=== PATIENT | male | born 1940 | race Caucasian/White ===

== ENCOUNTER → 2016-10-16 | Outpatient (CLI) | payer MEDICARE, OTHER ==
[~2016-10-16] MED LIST: AMLO-61 PO; FINA5TAB2 PO; LIAL1.2T PO; METO25TA74 PO; OMEP40CA2 PO; URSO1TAB6 PO; WELC625T PO; XARE20TA PO; ZETI10TA2 PO
== END ==
LOC: M SMT 10:22
PROVIDERS: ATTEND Nurse Practitioner Women's Health
DX: N40.0 Benign prostatic hyperplasia without lower urinary tract symptoms (principal); Z12.5 Encounter for screening for malignant neoplasm of prostate
CPT/HCPCS: 36415; 81001; 87086; G0103; G0463

== ENCOUNTER → 2017-01-16 | Outpatient (CLI) | payer MEDICARE, OTHER ==
[~2017-01-16] MED LIST changes: -AMLO-61 PO; +AMLO1TAB21 PO; +COLE625TAB PO; +METO1TAB32 PO; -METO25TA74 PO; -WELC625T PO; -ZETI10TA2 PO; +ZETI10TA30 PO
--- NOTE | 2017-01-16 16:52 | REP ---
Transrectal prostate ultrasound: 01/16/2017. Clinical history. Elevated PSA. Findings: Sonographic evaluation of the prostate by transrectal ultrasound and used also as guidance for transrectal ultrasound-guided biopsy of the prostate. The gland measured 5.2 x 5.12 x 5.63 cm, giving calculated prostate volume of 78.2 mL. Seminal vesicles are grossly unremarkable. There is a right sided nodule 1.3 x 0.9 cm and another 1 x 0.7 cm with an enlarged overall heterogeneous gland with calcifications. Technologist recorded a total of 12 passes for transrectal ultrasound-guided prostate biopsy by Dr. Alicea. Please see his report for detail. Signed by Sarthak Jaramillo MD 01/16/2017 06:38 P
== END | disposition home or self-care (01) ==
LOC: M SMT PRO 12:54
PROVIDERS: ATTEND Urology
DX: R97.20 Elevated prostate specific antigen [PSA] (principal); N39.41 Urge incontinence
CPT/HCPCS: 55700; 76872; 76942; 88344; G0416

== ENCOUNTER 2018-02-11 18:34 | Emergency (ER) | payer MEDICARE, OTHER ==
[2018-02-11] MEDS: NS 1,000 ML IV (19:32)
[2018-02-11] MEDS: ACETAMINOPHEN TAB 650MG DOSE (2X325MG) PO (19:33)
[2018-02-11 19:34] LABS: HEMATOCRIT 39.3 % (42.0-52.0); HEMOGLOBIN 13.1 g/dl (13.5-17.5); IMMATURE GRANULOCYTE % 0.3 % (0-3.0); LYMPH # 0.7 10^3/uL (1.5-4.5); LYMPH % 9.5 % (24.0-44.0); MEAN CORPUSCULAR HEMOGLOBIN 29.7 pg (27.0-33.0); MEAN CORPUSCULAR HGB CONC 33.3 g/dl (32.0-36.5); MEAN CORPUSCULAR VOLUME 89.1 fl (80.0-96.0); MONO % 13.8 % (0.0-5.0); NEUTROPHILS # 5.5 10^3/uL (1.8-7.7); NEUTROPHILS % 76.4 % (36.0-66.0); PLATELET COUNT, AUTOMATED 113 10^3/uL (150-450); RED BLOOD COUNT 4.41 10^6/uL (4.30-6.10); RED CELL DISTRIBUTION WIDTH 12.2 % (11.5-14.5); WHITE BLOOD COUNT 7.2 10^3/uL (4.0-10.0)
[2018-02-11 19:54] LABS: LACTIC ACID SEPSIS PROTOCOL 0.8 MMOL/L (0.4-2.0)
[2018-02-11 19:54] LABS: ALBUMIN/GLOBULIN RATIO 0.97 (1.00-1.93); ALKALINE PHOSPHATASE 100 U/L (45-117); ALT/SGPT 41 U/L (12-78); ANION GAP 8 MEQ/L (8-16); AST/SGOT 27 U/L (7-37); BILIRUBIN,DIRECT 0.4 MG/DL (0.0-0.2); BILIRUBIN,TOTAL 1.1 MG/DL (0.2-1.0); BLOOD UREA NITROGEN 25 MG/DL (7-18); CALCIUM LEVEL 8.3 MG/DL (8.8-10.2); CARBON DIOXIDE LEVEL 26 MEQ/L (21-32); CHLORIDE LEVEL 105 MEQ/L (98-107); CPK CREATINE PHOSPHOKINASE 182 U/L (39-308); CREATININE FOR GFR 0.77 MG/DL (0.70-1.30); GLOMERULAR FILTRATION RATE > 60.0 (>42); GLUCOSE, FASTING 114 MG/DL (70-100); POTASSIUM SERUM 4.1 MEQ/L (3.5-5.1); SODIUM LEVEL 139 MEQ/L (136-145); TOTAL PROTEIN 6.1 GM/DL (6.4-8.2); TROPONIN I < 0.02 NG/ML (< 0.10)
[2018-02-11 20:00] LABS: CK-MB VALUE MASS 2.8 NG/ML (<3.6); MB/CK RELATIVE INDEX 1.53 (< OR =4); THYROID STIMULATING HORMONE 0.804 uIU/ML (0.358-3.740)
[2018-02-11 21:40] LABS: KETONE, URINE AUTO RFX TRACE mg/dL (NEGATIVE); LEUKOCYTE ESTERASE UR AUTO RFX 1+ (NEGATIVE); MUCUS, URINE RFX SMALL (NEGATIVE); NITRITE, URINE AUTO RFX NEGATIVE (NEGATIVE); RBC, URINE AUTO RFX 2 /HPF (0-3); SPECIFIC GRAVITY UR AUTO RFX 1.018 (1.002-1.035); SQUAM EPITHELIAL CELL UR AURFX 1 /HPF (0-6); WBC, URINE AUTO RFX 2 /HPF (0-3)
== END 2018-02-12 00:35 | disposition short-term general hospital (02) ==
LOC: M ED 02-12 00:35
DX: G91.2 (Idiopathic) normal pressure hydrocephalus (principal); I10 Essential (primary) hypertension; E78.5 Hyperlipidemia, unspecified; N40.0 Benign prostatic hyperplasia without lower urinary tract symptoms; Z86.711 Personal history of pulmonary embolism; Z79.01 Long term (current) use of anticoagulants
CPT/HCPCS: 71045

== ENCOUNTER → 2018-04-17 | Outpatient (CLI) | payer MEDICARE, OTHER ==
[2018-04-17 15:51] LABS: INR 1.18; PROTHROMBIN TIME 15.1 SECONDS (12.1-14.4)
== END ==
LOC: M LAB 15:09
DX: M16.11 Unilateral primary osteoarthritis, right hip (principal)
CPT/HCPCS: 85610

== ENCOUNTER → 2020-01-01 | Outpatient (CLI) | payer MEDICARE, OTHER ==
[~2020-01-01] MED LIST changes: +DITR1TAB2 PO; +FERR325T3 PO; +MELO15TA28 PO; -OMEP40CA2 PO; +OMEP40CA97 PO; +TERA5CAP3 PO; -URSO1TAB6 PO; +URSO1TAB8 PO; +VITA500T17 PO; +VITMTA PO; +ZETI10TA16 PO; -ZETI10TA30 PO
== END ==
LOC: M LABSMTC 12:02
PROVIDERS: ATTEND Family Medicine
DX: Z11.59 Encounter for screening for other viral diseases (principal); Z20.828 Contact with and (suspected) exposure to other viral communicable diseases
CPT/HCPCS: C9803; U0003

== ENCOUNTER 2020-10-26 12:08 | Emergency (ER) | payer MEDICARE, OTHER ==
[2020-10-26] MEDS ORDERED: LABE100T4 PO (12:48)
[2020-10-26] MEDS ORDERED: VASC1CAP2 PO (12:48)
[2020-10-26 14:51] LABS: HEMATOCRIT 40.2 % (42.0-52.0); HEMOGLOBIN 13.1 g/dl (13.5-17.5); LYMPH # 0.8 10^3/uL (1.5-5.0); LYMPH % 16.4 % (24.0-44.0); MEAN CORPUSCULAR HGB CONC 32.6 g/dl (32.0-36.5); MONO # 1.1 10^3/uL (0.0-0.8); MONO % 21.3 % (2.0-8.0); NEUTROPHILS # 3.1 10^3/uL (1.5-8.5); NEUTROPHILS % 61.7 % (36.0-66.0); PLATELET COUNT, AUTOMATED 153 10^3/uL (150-450); RED BLOOD COUNT 4.37 10^6/uL (4.30-6.10); WHITE BLOOD COUNT 5.1 10^3/uL (4.0-10.0)
[2020-10-26 15:01] LABS: INR 1.2; PROTHROMBIN TIME 15.5 SECONDS (12.5-14.3)
[2020-10-26 15:02] LABS: PARTIAL THROMBOPLASTIN TIME 40.5 SECONDS (24.2-38.5)
[2020-10-26 15:16] LABS: ALBUMIN 2.8 GM/DL (3.2-5.2); ALT/SGPT 67 U/L (12-78); BILIRUBIN,DIRECT 4.5 MG/DL (0.0-0.2); BILIRUBIN,TOTAL 5.6 MG/DL (0.2-1.0); BLOOD UREA NITROGEN 25 MG/DL (7-18); CALCIUM LEVEL 9.7 MG/DL (8.8-10.2); CARBON DIOXIDE LEVEL 28 MEQ/L (21-32); CHLORIDE LEVEL 102 MEQ/L (98-107); CK-MB VALUE MASS 1.9 NG/ML (<3.6); CPK CREATINE PHOSPHOKINASE 51 U/L (39-308); CREATININE FOR GFR 0.46 MG/DL (0.70-1.30); GLOMERULAR FILTRATION RATE > 60.0 (>35); GLUCOSE, FASTING 96 MG/DL (70-100); LIPASE 39 U/L (73-393); MB/CK RELATIVE INDEX 3.73 (< OR =4); POTASSIUM SERUM 3.5 MEQ/L (3.5-5.1); SODIUM LEVEL 137 MEQ/L (136-145); TROPONIN I < 0.02 NG/ML (< 0.10)
[2020-10-26] MEDS ORDERED: ISOVUE-370 76% 100ML VIAL As Ordered ONE (15:41)
--- NOTE | 2020-10-26 16:17 | REP ---
INDICATION: abdominal swelling/discomfort. COMPARISON: Multiple the latest 08/19/2016 TECHNIQUE: Standard helical technique after the intravenous administration of 100 cc Isovue 370. No oral bowel preparatory contrast was administered prior to the exam FINDINGS: The lung bases are clear. There is a small hiatal hernia status quo. Once again, there is intrahepatic ductal dilatation which may have increased somewhat compared to the prior exam. No enhancing hepatic lesions have developed. Once again, note is made of partial hepatectomy. The spleen is again seen to be globular in appearance but there is no praveen splenomegaly. There is some evidence to suggest splenic varices. This is mild. The pancreas, adrenal glands, and kidneys are essentially unchanged. The abdominal aorta and para-aortic regions are unchanged. Note is again made of an inferior vena cava filter. There is no significant change in appearance of the bowel loops or the mesenteries. Although there is a gas-filled colon there is no evidence of praveen intestinal obstruction. There is no evidence of free fluid or free air. No mass or adenopathy has developed since the last exam. Once again, there is mild prostatomegaly with corpora amylacea. Since the last examination the patient has undergone a total right hip prosthesis. There is no other significant change in appearance of the imaged osseous structures. IMPRESSION: There has been no significant change compared to the prior exam with the exception of probably increased intrahepatic ductal dilatation. The etiology of this is uncertain. There are other findings and chronic changes as described above. <Electronically signed by Randy Arboleda > 10/26/20 [id number]
--- NOTE | 2020-10-26 17:14 | REP ---
INDICATION: further evaluate liver/gallbladder. COMPARISON: No prior right upper quadrant ultrasound examinations for comparison FINDINGS: There is intrahepatic ductal dilatation known from the CT scan finding obtained earlier today. The patient is status post cholecystectomy and partial hepatectomy. The common bowel duct measures 4 mm. The pancreas could not be imaged due to the patient's intestinal gas pattern. The echogenicity of the liver is similar to the echogenicity of the right renal cortex. There is no free fluid. The imaged portion of the right kidney is unremarkable. IMPRESSION: 1. See the CT report made earlier today. 2. Intrahepatic ductal dilatation. 3. Other findings as described above Accredited by the [employer] in General Ultrasound. <Electronically signed by Randy Arboleda > 10/26/20 [id number]
[2020-10-26] MEDS ORDERED: METOCLOPRAMIDE 10 MG TAB PO ONE (17:40)
[2020-10-26 17:46] VITALS: BP 158/92
--- NOTE | 2020-10-27 04:56 | ECGEPIP ---
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
--- NOTE | 2020-10-27 07:21 | ED PDOC ---
Post-Departure Follow-Up radiology report faxed to [facility] Sarah MD October 27, 2020 07:21
== END 2020-10-26 18:11 | disposition home or self-care (01) ==
LOC: EDBD 12:08 → M ED 12:08
DX: E80.6 Other disorders of bilirubin metabolism (principal); I10 Essential (primary) hypertension; E78.5 Hyperlipidemia, unspecified; K21.9 Gastro-esophageal reflux disease without esophagitis; Z79.899 Other long term (current) drug therapy; Z79.01 Long term (current) use of anticoagulants; Z88.5 Allergy status to narcotic agent; Z88.8 Allergy status to other drugs, medicaments and biological substances
CPT/HCPCS: 36415; 74177; 76705; 80048; 80076; 81001; 82550; 82553; 83605; 83690; 84484; 85025; 85610; 85730; 86850; 86900; 86901; 93005; 93041; 99284; Q9967

== ENCOUNTER 2020-11-08 08:43 | Observation (INO) | payer MEDICARE, OTHER ==
[~2020-11-08] VITALS: Ht 182.9 cm; Wt 93.0 kg
[~2020-11-08 08:43] MED LIST changes: +LABE100T4 PO; +VASC1CAP2 PO
[2020-11-08] MEDS ORDERED: BENAZEPRIL 20 MG TAB PO SCH (09:00)
[2020-11-08] MEDS ORDERED: TERA5CAP3 PO (09:05)
[2020-11-08 09:24] LABS: HEMATOCRIT 42.9 % (42.0-52.0); HEMOGLOBIN 13.7 g/dl (13.5-17.5); LYMPH # 0.5 10^3/uL (1.5-5.0); LYMPH % 4.6 % (24.0-44.0); MEAN CORPUSCULAR HEMOGLOBIN 29.5 pg (27.0-33.0); MEAN CORPUSCULAR HGB CONC 31.9 g/dl (32.0-36.5); MEAN CORPUSCULAR VOLUME 92.5 fl (80.0-96.0); MONO # 1.1 10^3/uL (0.0-0.8); MONO % 9.9 % (2.0-8.0); NEUTROPHILS # 9.8 10^3/uL (1.5-8.5); PLATELET COUNT, AUTOMATED 184 10^3/uL (150-450); RED BLOOD COUNT 4.64 10^6/uL (4.30-6.10); WHITE BLOOD COUNT 11.5 10^3/uL (4.0-10.0)
--- NOTE | 2020-11-08 09:44 | REP ---
INDICATION: Syncope. COMPARISON: Comparison CT study of the brain is from February 11, 2018.. TECHNIQUE: Helical scanning is acquired. 5 mm axial images were reformatted. Coronal MPR images were generated. FINDINGS: Digital preliminary multimedia assistant radiographs demonstrate evidence of small prior right frontal craniotomy. Amira hole defect is seen on bone windows settings. Bony calvarium is otherwise intact. There is moderate poly sinusitis mucosal change with an air-fluid level in the left sphenoid sinus, air and fluid in the left maxillary sinus, and mucosal thickening in the ethmoid air cells bilaterally. There is moderate vascular calcification in the distal internal carotid arteries bilaterally. No intraorbital abnormality is seen. On soft tissue window settings, there is an area of periventricular white matter encephalomalacia in the right frontal lobe related to the previous ventriculostomy. This is underlies the ventriculostomy amira hole. No ventriculostomy catheter is seen. The lateral and 3rd ventricles are mildly dilated but less so than on the pre ventriculostomy CT study February 11, 2018. There is mild generalized volume loss. No extra-axial fluid collection is seen. No mass, hemorrhage, infarct or midline shift is seen. IMPRESSION: Vascular calcification and generalized volume loss. Prior right frontal amira hole/ventriculostomy tract with a small area of right frontal encephalomalacia. Mild lateral and 3rd ventricular enlargement less prominent than on the comparison CT February 11, 2018. No acute intracranial abnormality. Poly sinusitis changes.. <Electronically signed by Seun Michel > 11/08/20 [id number]
--- NOTE | 2020-11-08 09:46 | REP ---
INDICATION: trauma. COMPARISON: None. TECHNIQUE: Helical scanning is acquired and overlapping 2 mm high resolution axial images were generated and reviewed at bone and soft tissue window settings. Coronal and sagittal multiplanar re-formations images are generated. FINDINGS: There is no evidence of cervical spine element fracture. No skull base fracture is seen. Cervical vertebral body heights are preserved. Alignment is normal. Facet joints are normally aligned bilaterally at each cervical level on multiplanar re-formations images. There is no evidence of intraspinal or paraspinal hematoma. No extra vertebral abnormality is seen. There are mild degenerative disc changes. 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 IMPRESSION: Mild degenerative spondylosis changes. Otherwise negative CT study of the cervical spine. No evidence of fracture or subluxation.. <Electronically signed by Seun Michel > 11/08/20 [id number]
[2020-11-08 09:54] LABS: BLOOD UREA NITROGEN 18 MG/DL (7-18); CALCIUM LEVEL 9.2 MG/DL (8.8-10.2); CARBON DIOXIDE LEVEL 27 MEQ/L (21-32); CHLORIDE LEVEL 101 MEQ/L (98-107); CK-MB VALUE MASS 1.7 NG/ML (<3.6); CPK CREATINE PHOSPHOKINASE 78 U/L (39-308); CREATININE FOR GFR 0.83 MG/DL (0.70-1.30); GLOMERULAR FILTRATION RATE > 60.0 (>35); GLUCOSE, FASTING 118 MG/DL (70-100); MB/CK RELATIVE INDEX 2.18 (< OR =4); POTASSIUM SERUM 4.2 MEQ/L (3.5-5.1); SODIUM LEVEL 135 MEQ/L (136-145); TROPONIN I < 0.02 NG/ML (< 0.10)
--- NOTE | 2020-11-08 09:54 | REP ---
INDICATION: Syncope/near-syncope COMPARISON: 02/11/2018 TECHNIQUE: Portable AP view of the chest FINDINGS: The mediastinum and cardiac silhouette are stable and within normal limits for portable technique. The lung doll are clear without acute consolidation, effusion, or pneumothorax. Skeletal structures are intact. Right shoulder replacement noted. IMPRESSION: No acute cardiopulmonary process appreciated. <Electronically signed by Anjum Abdi > 11/08/20 0974
[2020-11-08 10:06] LABS: INR 1.38; PROTHROMBIN TIME 17.3 SECONDS (12.5-14.3)
[2020-11-08 10:08] LABS: ALBUMIN 2.9 GM/DL (3.2-5.2); ALT/SGPT 115 U/L (12-78); BILIRUBIN,DIRECT 4.6 MG/DL (0.0-0.2); BILIRUBIN,TOTAL 5.4 MG/DL (0.2-1.0); TOTAL PROTEIN 6.9 GM/DL (6.4-8.2)
[2020-11-08 10:31] LABS: D-DIMER QUANT > 4000 ng/ml (<500)
[2020-11-08] MEDS ORDERED: ISOVUE-370 76% 100ML VIAL As Ordered ONE (10:35)
--- NOTE | 2020-11-08 11:20 | REP ---
INDICATION: syncope r/o PE COMPARISON: 02/11/2018 TECHNIQUE: Axial contrast enhanced images from the thoracic inlet to the upper abdomen using pulmonary embolus technique with multiplanar re-formations. 75 ml Isovue 370 intravenous contrast material administered without complication. This CT examination was performed using the following dose reduction techniques: Automated exposure control, adjustment of mA and/or kv according to the patient's size, and use of iterative reconstruction technique. FINDINGS: Satisfactory enhancement of the pulmonary vasculature is achieved and no filling defects are identified to suggest pulmonary embolus. Further evaluation of the mediastinum demonstrates normal thoracic aorta, heart and pericardium. The bilateral lung doll are well aerated and clear without consolidation pleural effusion or pneumothorax. Tracheobronchial tree is patent. No nodule or mass lesion is identified. No adenopathy noted. IMPRESSION: No evidence for pulmonary embolus. No acute mediastinal or pleural parenchymal process. <Electronically signed by Anjum Abdi > 11/08/20 [id number]
--- NOTE | 2020-11-08 11:26 | REP ---
INDICATION: elevated LFTs, hx primary sclerosing cholangitis. COMPARISON: 10/26/2020 TECHNIQUE: Axial contrast-enhanced images from the lung bases to the pubic symphysis using 100 cc Isovue 370 intravenous contrast material. . This CT examination was performed using the following dose reduction techniques: Automated exposure control, adjustment of mA and/or kv according to the patient's size, and the use of iterative reconstruction technique. FINDINGS: Patient is noted to be status post cholecystectomy and suspected partial hepatectomy with chronic intrahepatic and extrahepatic biliary ductal dilatation. No acute focal hepatic lesion identified. Findings are in keeping with history of primary sclerosing cholangitis. Spleen, pancreas, bilateral adrenal glands and kidneys are essentially normal/stable. The enteric system is without obstruction or acute inflammatory process. Colonic diverticulosis noted without acute diverticulitis. Pelvis demonstrates normal bladder and heterogeneous prostatomegaly. No ascites. No free air. No intraperitoneal or retroperitoneal adenopathy. Atherosclerotic changes to the aorta and vasculature noted without aneurysm or dissection. IVC filter again identified in stable position. Musculoskeletal structures demonstrate degenerative changes along with right hip replacement.. IMPRESSION: No acute abdominopelvic pathology appreciated. Chronic stable findings as described above. <Electronically signed by Anjum Abdi > 11/08/20 [id number]
[2020-11-08] MEDS ORDERED: LOTR10CA PO (12:31)
[2020-11-08 15:45] LABS: RSV AMPLIFICATION NEGATIVE (NEGATIVE)
[2020-11-08 17:50] VITALS: BP 162/81
--- NOTE | 2020-11-08 17:51 | HPEPDOC ---
General Date of Admission 11/08/20 Date of Service: November 08, 2020 Chief Complaint The patient is a 79-year-old male admitted with a reason for visit of Syncope. History of Present Illness 79-year-old male with past medical history of Primary sclerosing cholangitis, Ulcerative colitis, Colonic diverticulosis, Hypertension, hyperlipidemia, GERD, DVTs, vitamin D deficiency, BPH presented to ED after having a syncopal episode after getting out of shower. Patient has been fasting for blood work since yesterday 5 PM. Patient reported that he got up to the shock shower. He was just put on his undergarments and was getting ready to go. She is petite, then he certainly is started feeling very dizzy and lightheaded. He tried to sit down, thinking that the toilet seat was behind him, but actually he had gone and the toilet seat was to his left so he suddenly went down in squating position to the floor against the wall. His heard him fall and immediately came to the bathroom. She helped him up and the he was able to get up and sit on the toilet seat . As per , he had 2 more episodes of passing out for a few seconds to a minute while he was sitting on the toilet before EMS arrived .When EMS was there patient had another episode of syncope for about 1 minute. There were no seizure-like activities , no loss of bowel or bladder control. He was very cold and pale as per the . Initial BP by EMS was 86/40 fingerstick was 109, as recorded by EMS. Patient did not strike his head. CT head showed volume loss and microvascular disease and prior right frontal amira hole/ventriculostomy tract with a small area of right frontal encephalomalacia. CTA Chest was negative for any PE. CT abdomen and pelvis showed intra-and extrahepatic biliary dilatations. No other acute findings. Home Medications Scheduled Amlodipine Besylate/Benazepril (Lotrel 10-20 mg Capsule) 1 Each Capsule, 1 CAP PO DAILY, (Reported) Colesevelam Hydrochloride (Welchol) 625 Mg Tab, 1,875 MG PO BID, (Reported) Ezetimibe (Zetia) 10 Mg Tab, 10 MG PO DAILY, (Reported) Icosapent Ethyl (Vascepa) 1 Gm Capsule, 1 GM PO BID, (Reported) Labetalol HCl (Labetalol HCl) 100 Mg Tablet, 100 MG PO BID, (Reported) Mesalamine (Lialda) 1.2 Gm Tab, 1.2 GM PO BID, (Reported) Multivitamins (Thera M Plus Tablet) 1 Tab Tab, 1 TAB PO DAILY, (Reported) Omeprazole (Omeprazole) 40 Mg Cap, 40 MG PO QPM, (Reported) Rivaroxaban (Xarelto) 20 Mg Tab, 20 MG PO QPM, (Reported) Terazosin HCl (Terazosin HCl) 5 Mg Capsule, 5 MG PO QPM, (Reported) Ursodiol (Ursodiol) 500 Mg Tab, 500 MG PO BID, (Reported) Allergies Coded Allergies: amlodipine (Verified Allergy, Mild, rash, 11/08/20) fentanyl (Verified Allergy, Mild, rash, 11/08/20) heparin (Verified Allergy, Mild, rash, 11/08/20) morphine (Verified Allergy, Mild, rash, 11/08/20) warfarin (Verified Adverse Reaction, Unknown, blisters, 11/08/20) Past Medical History Medical History Primary sclerosing cholangitis. ulcerative colitis, Obstructive jaundice Colonic diverticulosis, Hypertension, hyperlipidemia, GERD, DVTs, vitamin D deficiency, BPH Surgical History Partial hepatectomy in 2011 Appendectomy Right hip replacement in 2019 Brain surgery in 2018 right frontal amira hole/ventriculostomy IVC filter, Cholecystectomy, TRUS BX IN 2017 FOR A PSA OF 4.3 Family History Significant Family History: Cancer (Brother prostate cancer) Social History * Smoker: non-smoker Alcohol: Denies Drugs: denies A-FIB/CHADSVASC A-FIB History Current/History of A-Fib/PAF?: No Review of Systems Constitutional: Denies: Chills, Fever, Night Sweats Eyes: Denies: Pain, Vision change ENT: Denies: Head Aches, Ear Pain, Dysphagia Skin: Denies: Rash, Lesions, Breakdown Pulmonary: Denies: Dyspnea, Cough Cardiovascular: Reports: Lt Headedness; Denies: Chest Pain, Palpitations, Orthopnea, Paroxysmal Noc. Dyspnea Gastrointestinal: Denies: Nausea, Vomiting, Abdominal Pain, Diarrhea Genitourinary: Denies: Dysuria, Frequency, Incontinence, Retention Hematologic: Denies: Bruising, Bleeding Excessively Physical Examination General Exam: Positive: Alert, Cooperative, No Acute Distress Eye Exam: Positive: PERRLA, Conjunctiva & lids normal, EOMI, Sclera icteric ENT Exam: Positive: Atraumatic, Mucous membr. moist/pink, Pharynx Normal Neck Exam: Positive: Supple; Negative: JVD, thyromegaly Chest Exam: Positive: Clear to auscultation, Normal air movement Heart Exam: Positive: Rate Normal, Regular Rhythm, Normal S1, Normal S2; Negative: Murmurs, Rubs Telemetry: Positive: No significant arrhythmia Abdomen Exam: Positive: Normal bowel sounds, Soft; Negative: Tenderness, Hepatospenomegaly Extremity Exam: Positive: Normal pulses; Negative: Clubbing, Cyanosis, Edema Neuro Exam: Positive: Normal Speech, Strength at 5/5 X4 ext, Normal Tone Psych Exam: Positive: Memory Intact, Oriented x 3 Vital Signs Vital Signs Date Time Temp Pulse Resp B/P (MAP) Pulse Ox O2 Delivery O2 Flow Rate FiO2 11/08/20 11:04 16 163/79 (107) 11/08/20 10:58 83 97 11/08/20 08:49 97.4 Room Air Laboratory Data Labs 24H Laboratory Tests 2 11/08/20 08:57: Immature Granulocyte % (Auto) 0.5, Neutrophils (%) (Auto) 85.0H, Lymphocytes (%) (Auto) 4.6L, Monocytes (%) (Auto) 9.9H, Eosinophils (%) (Auto) 0.0, Basophils (%) (Auto) 0.0, Neutrophils # (Auto) 9.8H, Lymphocytes # (Auto) 0.5L, Monocytes # (Auto) 1.1H, Eosinophils # (Auto) 0.0, Basophils # (Auto) 0.0, Nucleated Red Blood Cells % (auto) 0.0, Anion Gap 7L, Glomerular Filtration Rate > 60.0, Calcium Level 9.2, Total Bilirubin 5.4H, Direct Bilirubin 4.6H, Aspartate Amino Transf (AST/SGOT) 93H, Alanine Aminotransferase (ALT/SGPT) 115H, Alkaline Phosphatase 292H, Total Creatine Kinase 78, Creatine Kinase MB 1.7, Creatine Kinase MB Relative Index 2.18, Troponin I < 0.02, Total Protein 6.9, Albumin 2.9L, Albumin/Globulin Ratio 0.7, Thyroid Stimulating Hormone (TSH) 2.630 11/08/20 09:09: Bedside Glucose (Misc Panel) 121H 5/26/21 09:36: Prothrombin Time 17.3H, Prothromb Time International Ratio 1.38, Activated Partial Thromboplast Time 38.0, D-Dimer, Quantitative > 4000H CBC/BMP Laboratory Tests 11/08/20 08:57 Assessment/Plan 79-year-old male with past medical history of Primary sclerosing cholangitis, Ulcerative colitis, Colonic diverticulosis, Hypertension, hyperlipidemia, GERD, DVTs, vitamin D deficiency, BPH presented to ED for having 4 syncopal episodes at home each lasting for a minute. One of the episode happened in front of EMS. Patient was admitted for the evaluation of syncope. Syncopal Likely vasovagal or orthostatic hypotension related No seizure-like activities, not Will rule out cardiac arrhythmia. Place on telemetry EKG showed sinus rhythm with some PACs, no acute changes Will get echocardiography Orthostatic vitals Hypertension Patient was hypotensive. EMS this morning Patient has multiple antihypertensive medications For now, we'll only give amlodipine Will hold labetalol. Will start on lower-dose Benzapril from tomorrow morning if blood pressure remains high Primary sclerosing cholangitis diagnosed in 2011 Patient has some obstructive jaundice. His numbers are unchanged from the blood work done 2 weeks ago He follows with Dr. Tobin Have left a message for Dr. Tobin regarding his admission and his lab work waiting to hear back from him. CT abdomen and pelvis did not show any new changes Continue ursodiol and cholestyramine Ulcerative colitis For many years Continue mesalamine BPH Continued terazosin History of from partial hepatectomy in 2011 As per patient part of the left lobe of the liver was shrunken and shriveled up due to lack of blood supply, so had to be removed It was at that time that he was diagnosed with sclerosing cholangitis There was some multiple clots in his splenic vein. History of DVTs Which he says started with splenic vein clots Has IVC filter in place Continue xarelto GERD Continue omeprazole Plan / VTE VTE Prophylaxis Ordered?: Yes STEFANY GOMEZ MD November 08, 2020 12:48
[2020-11-08] MEDS: EZETIMIBE 10 MG TAB (ZETIA) PO SCH (18:22)
[2020-11-08] MEDS: MULTIVITAMINS/MINERALS THERAP 1 TAB PO SCH (18:23)
[2020-11-08] MEDS ORDERED: RIVAROXABAN 20 MG TAB (XARELTO) PO SCH (21:00)
[2020-11-08] MEDS ORDERED: OMEPRAZOLE 20 MG CAP PO SCH (21:00)
[2020-11-08] MEDS ORDERED: TERAZOSIN 5MG CAPSULE PO SCH (21:00)
[2020-11-08] MEDS ORDERED: PILL CUTTER 1 EACH XX PRN (21:35)
[2020-11-08] MEDS: ursodioL 300 MG CAP PO SCH (21:58)
[2020-11-08] MEDS: COLESEVELAM 625 MG TAB (WELCHOL) PO SCH (21:59)
[2020-11-08 22:00] VITALS: BP 144/69
[2020-11-08] MEDS: MESALAMINE 400 MG CAPSULE DELAYED RELEASE (DELZICOL) PO SCH (22:02)
--- NOTE | 2020-11-09 05:16 | ECGEPIP ---
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
[2020-11-09 06:00] VITALS: BP 139/69
[2020-11-09 06:47] LABS: HEMATOCRIT 40.8 % (42.0-52.0); LYMPH # 0.6 10^3/uL (1.5-5.0); LYMPH % 9.6 % (24.0-44.0); MEAN CORPUSCULAR HGB CONC 31.9 g/dl (32.0-36.5); MEAN CORPUSCULAR VOLUME 91.1 fl (80.0-96.0); MONO # 0.7 10^3/uL (0.0-0.8); MONO % 10.6 % (2.0-8.0); NEUTROPHILS # 5.3 10^3/uL (1.5-8.5); NEUTROPHILS % 79.2 % (36.0-66.0); PLATELET COUNT, AUTOMATED 181 10^3/uL (150-450); RED BLOOD COUNT 4.48 10^6/uL (4.30-6.10); WHITE BLOOD COUNT 6.7 10^3/uL (4.0-10.0)
[2020-11-09 07:06] LABS: ALBUMIN 2.7 GM/DL (3.2-5.2); ALT/SGPT 120 U/L (12-78); BILIRUBIN,TOTAL 6.1 MG/DL (0.2-1.0); BLOOD UREA NITROGEN 20 MG/DL (7-18); CALCIUM LEVEL 8.7 MG/DL (8.8-10.2); CARBON DIOXIDE LEVEL 25 MEQ/L (21-32); CHLORIDE LEVEL 104 MEQ/L (98-107); CREATININE FOR GFR 0.57 MG/DL (0.70-1.30); GLOMERULAR FILTRATION RATE > 60.0 (>35); GLUCOSE, FASTING 96 MG/DL (70-100); POTASSIUM SERUM 4.1 MEQ/L (3.5-5.1); SODIUM LEVEL 137 MEQ/L (136-145); TOTAL PROTEIN 5.9 GM/DL (6.4-8.2)
[2020-11-09] MEDS ORDERED: CIPROFLOXACIN 500MG TABLET PO SCH (09:00)
[2020-11-09] MEDS: MESALAMINE 400 MG CAPSULE DELAYED RELEASE (DELZICOL) PO SCH (09:30)
[2020-11-09] MEDS: COLESEVELAM 625 MG TAB (WELCHOL) PO SCH (09:31)
[2020-11-09] MEDS: EZETIMIBE 10 MG TAB (ZETIA) PO SCH (09:32)
[2020-11-09] MEDS: MULTIVITAMINS/MINERALS THERAP 1 TAB PO SCH (09:32)
[2020-11-09 09:33] VITALS: BP 142/72
[2020-11-09] MEDS: ursodioL 300 MG CAP PO SCH (09:33)
[2020-11-09 09:40] VITALS: BP 142/72
[2020-11-09 09:41] VITALS: BP_SYST 119; BP_SYST 142; BP_DIAS 69; BP_DIAS 70
--- NOTE | 2020-11-09 10:05 | IPNPDOC ---
Subjective Date Seen The patient was seen on 11/09/20. Subjective Chief Complaint/HPI No issues overnight. No dizziness or light headedness this morning. Objective Physical Examination General Exam: Positive: Alert, Cooperative, No Acute Distress Eye Exam: Positive: PERRLA, Conjunctiva & lids normal, EOMI, Sclera icteric ENT Exam: Positive: Atraumatic, Mucous membr. moist/pink, Pharynx Normal Neck Exam: Positive: Supple; Negative: JVD, thyromegaly Chest Exam: Positive: Clear to auscultation, Normal air movement Heart Exam: Positive: Rate Normal, Regular Rhythm, Normal S1, Normal S2; Negative: Murmurs, Rubs Telemetry: Positive: No significant arrhythmia Abdomen Exam: Positive: Normal bowel sounds, Soft; Negative: Tenderness, Hepatospenomegaly Extremity Exam: Positive: Normal pulses; Negative: Clubbing, Cyanosis, Edema Neuro Exam: Positive: Normal Speech, Strength at 5/5 X4 ext, Normal Tone Psych Exam: Positive: Memory Intact, Oriented x 3 Assessment /Plan Assessment 79-year-old male with past medical history of Primary sclerosing cholangitis, Ulcerative colitis, Colonic diverticulosis, Hypertension, hyperlipidemia, GERD, DVTs, vitamin D deficiency, BPH presented to ED for having 4 syncopal episodes at home each lasting for a minute. One of the episode happened in front of EMS. Patient was admitted for the evaluation of syncope. Syncope Likely due to orthostatic hypotension on the back ground of multiple antihypertensive medications. Orthostatic vitals are positive but patient is asymptomatic today after reducing antihypetensive medications. 142/70 sitting and supine to 119/69 on standing No events in telemetry CTA chest neg for pulmonary embolism. EKG showed sinus rhythm with some PACs, no acute changes Echo showed: 1. Normal global left ventricular systolic function. There are some features of grade 1 left ventricular diastolic dysfunction manifested by abnormal relaxation. 2. Mitral annulus calcification with trace mitral regurgitation and a mildly enlarged left atrium. 3. Mild tricuspid regurgitation with probably moderate pulmonary hypertension. Hypertension Patient was hypotensive with EMS. Patient has multiple antihypertensive medications For now, we'll only give amlodipine will stop benzapril and labetelol. Primary sclerosing cholangitis diagnosed in 2011 Patient has some obstructive jaundice. His numbers are unchanged from the blood work done 2 weeks ago He follows with Dr. Tobin Have left a message for Dr. Tobin regarding his admission and his lab work waiting to hear back from him. CT abdomen and pelvis did not show any new changes Continue ursodiol and cholestyramine Discussed with Dr Tobin. He recommended to give a course of cipro and he will see patient next week. Ulcerative colitis For many years Continue mesalamine BPH Continued terazosin History of from partial hepatectomy in 2011 As per patient part of the left lobe of the liver was shrunken and shriveled up due to lack of blood supply, so had to be removed It was at that time that he was diagnosed with sclerosing cholangitis There was some multiple clots in his splenic vein. History of DVTs Which he says started with splenic vein clots Has IVC filter in place Continue xarelto GERD Continue omeprazole Dispo: Dc home Plan/VTE VTE Prophylaxis Ordered?: Yes VS, I&O, 24H, Fishbone Vital Signs/I&O Vital Signs Date Time Temp Pulse Resp B/P (MAP) Pulse Ox O2 Delivery O2 Flow Rate FiO2 11/09/20 09:41 91 119/69 (86) 11/09/20 06:00 97.5 17 95 Room Air I&O- Last 24 Hours up to 6 AM 11/09/20 06:00 Intake Total 600 ml Output Total 450 ml Balance 150 ml Laboratory Data 24H LABS Laboratory Tests 2 11/08/20 14:36: Coronavirus (COVID-19)(PCR) NEGATIVE, Influenza Type A (RT-PCR) NEGATIVE, Influenza Type B (RT-PCR) NEGATIVE, Respiratory Syncytial Virus (PCR) NEGATIVE 11/09/20 06:05: Immature Granulocyte % (Auto) 0.6, Neutrophils (%) (Auto) 79.2H, Lymphocytes (%) (Auto) 9.6L, Monocytes (%) (Auto) 10.6H, Eosinophils (%) (Auto) 0.0, Basophils (%) (Auto) 0.0, Neutrophils # (Auto) 5.3, Lymphocytes # (Auto) 0.6L, Monocytes # (Auto) 0.7, Eosinophils # (Auto) 0.0, Basophils # (Auto) 0.0, Nucleated Red Blood Cells % (auto) 0.0, Anion Gap 8, Glomerular Filtration Rate > 60.0, Calcium Level 8.7L, Total Bilirubin 6.1H, Direct Bilirubin 5.0H, Aspartate Amino Transf (AST/SGOT) 92H, Alanine Aminotransferase (ALT/SGPT) 120H, Alkaline Phosph atase 328H, Total Protein 5.9L, Albumin 2.7L, Albumin/Globulin Ratio 0.8 CBC/BMP Laboratory Tests 11/09/20 06:05 STEFANY GOMEZ MD November 09, 2020 10:05
[2020-11-09] MEDS ORDERED: CIPR-249 PO (13:13)
[2020-11-09] MEDS ORDERED: AMLO1TAB25 PO (13:13)
--- NOTE | 2020-11-10 09:28 | ECHO ---
ECHOCARDIOGRAM DATE OF PROCEDURE: 11/09/2020 Age: 79 Gender: Male Height: Weight: REFERRING PHYSICIAN: Faiza Vargas MD REASON FOR STUDY: Syncope. PATIENT LOCATION: Room 4228. 2D MEASUREMENTS: IVS 1.2 cm LV 4.7 cm LVPW 1.2 cm LA 4.4 cm Aorta 3.5 cm DOPPLER MEASUREMENT Peak velocity across the aortic valve 1.5 m/s Peak velocity across the LVOT 0.7 m/s Mitral E 0.53 Mitral A 0.62 with a ratio of 0.86 Maximum tricuspid valve velocity 3.1 m/s 2D COMMENTS: 1. Normal left ventricular size, wall thickness, and normal global left ventricular systolic function. The estimated left ventricular systolic ejection fraction is 55% to 65%. 2. The left atrium is mildly enlarged. Normal right atrium and right ventricle. 3. The atrial septum appeared to be normal without evidence of defect or shunt. 4. Normal aortic root. 5. No pericardial effusion seen. 6. Normal aortic valve. Mildly calcified mitral annulus with normal anterior mitral valve leaflet motion. Normal tricuspid valve and pulmonic valve. The proximal pulmonary artery branches were not well visualized. 7. The inferior vena cava was not visualized. DOPPLER: Detects trace mitral regurgitation, mild tricuspid regurgitation. The calculated pulmonary artery systolic pressure varies between 40 to 50 mmHg. Abnormal relaxation pattern was noted across the mitral valve leaflets, as well as the mitral valve annulus consistent with features of grade 1 left ventricular diastolic dysfunction. IMPRESSION: 1. Normal global left ventricular systolic function. There are some features of grade 1 left ventricular diastolic dysfunction manifested by abnormal relaxation. 2. Mitral annulus calcification with trace mitral regurgitation and a mildly enlarged left atrium. 3. Mild tricuspid regurgitation with probably moderate pulmonary hypertension. 4. The inferior vena cava was not visualized.
== END 2020-11-09 14:14 | disposition home or self-care (01) ==
LOC: EDBD 08:43 → M ED 08:43 → M ED INP 13:21 → ENRESERV 14:03 → M MSPAV 17:50
PROVIDERS: ADMIT Internal Medicine Nephrology; ATTEND Internal Medicine Nephrology
DX: R55 Syncope and collapse (principal); I95.9 Hypotension, unspecified; I10 Essential (primary) hypertension; K83.01 Primary sclerosing cholangitis; K51.90 Ulcerative colitis, unspecified, without complications; N40.0 Benign prostatic hyperplasia without lower urinary tract symptoms; Z90.89 Acquired absence of other organs; Z86.718 Personal history of other venous thrombosis and embolism; K21.9 Gastro-esophageal reflux disease without esophagitis; K83.1 Obstruction of bile duct; K57.90 Diverticulosis of intestine, part unspecified, without perforation or abscess without bleeding; E78.5 Hyperlipidemia, unspecified; E55.9 Vitamin D deficiency, unspecified; Z79.899 Other long term (current) drug therapy; Z79.01 Long term (current) use of anticoagulants; Z88.8 Allergy status to other drugs, medicaments and biological substances; Z88.5 Allergy status to narcotic agent
CPT/HCPCS: 36415; 70450; 71045; 71275; 72125; 74177; 80048; 80053; 80076; 82248; 82550; 82553; 84443; 84484; 85025; 85379; 85610; 85730; 87631; 93005; 93041; 93306; 94760; 99285; G0378; Q9967

== ENCOUNTER → 2020-12-11 | Outpatient (CLI) | payer MEDICARE, OTHER ==
[~2020-12-11] MED LIST changes: +AMLO1TAB25 PO; +CIPR-249 PO; +LOTR10CA PO; +OMEP40CA4 PO; -OMEP40CA97 PO
--- NOTE | 2020-12-13 11:09 | REP ---
INDICATION: ABNORMAL LIVER FUNCTIONS MRCP. History of primary sclerosing cholangitis. COMPARISON: Outside comparison studies have been retrieved dated July 29, 2017, August 02, 2015, January 19, 2014, and September 22, 2013. Comparison CT study November 08, 2020. TECHNIQUE: Axial and coronal T2 weighted images are acquired. MRCP acquisition is included with maximum density projection and source images. FINDINGS: There is moderate diffuse intrahepatic biliary ductal dilation. This is most pronounced in what appears to be the caudate lobe of the liver. The left lobe of the liver appears to have been resected. The caudate lobe is quite small consistent with postobstructive atrophy. Previous study showed dilated intrahepatic bile ducts in this caudate lobe of the liver. 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 Most of these are relatively central. The common bile duct has a slightly beaded appearance as well. The main pancreatic duct appears dilated in the pancreatic head. It is normal in caliber in the body and tail. The CBD measures 7 mm in greatest diameter. There is no evidence of choledocholithiasis. The gallbladder is surgically absent. No visible portal or periportal mass lesion is seen. Findings are consistent with progression of the patient's primary sclerosing cholangitis. This The spleen is mildly enlarged measuring 14.6 cm. Small parapelvic cortical cysts are seen in the kidneys. No ascites. 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 There is more advanced disease in what appears to be the caudate lobe, which is scarred and retracted and diminutive with dilated intrahepatic bile ducts. Patient appears to be status post left lobe hepatectomy. Normal caliber CBD. Post cholecystectomy. <Electronically signed by Seun Michel > 12/13/20 [id number]
== END ==
LOC: M RAD 13:22
PROVIDERS: ATTEND Internal Medicine Gastroenterology
DX: K83.01 Primary sclerosing cholangitis (principal); E80.6 Other disorders of bilirubin metabolism; R74.8 Abnormal levels of other serum enzymes; Z90.49 Acquired absence of other specified parts of digestive tract

== ENCOUNTER 2021-05-22 10:47 | Inpatient (IN) | payer MEDICARE, OTHER ==
[~2021-05-22] VITALS: Ht 182.9 cm; Wt 89.9 kg
[2021-05-22 16:12] LABS: HEMATOCRIT 36.2 % (42.0-52.0); HEMOGLOBIN 12.1 g/dl (13.5-17.5); MEAN CORPUSCULAR HEMOGLOBIN 29.5 pg (27.0-33.0); MEAN CORPUSCULAR HGB CONC 33.4 g/dl (32.0-36.5); MEAN CORPUSCULAR VOLUME 88.3 fl (80.0-96.0); PLATELET COUNT, AUTOMATED 291 10^3/uL (150-450); WHITE BLOOD COUNT 6.4 10^3/uL (4.0-10.0)
[2021-05-22] MEDS ORDERED: ISOVUE-370 76% 100ML VIAL As Ordered ONE (16:16)
[2021-05-22 17:09] LABS: ALBUMIN 2.2 GM/DL (3.2-5.2); ALT/SGPT 104 U/L (12-78); BILIRUBIN,DIRECT 12.5 MG/DL (0.0-0.2); BILIRUBIN,TOTAL 14.4 MG/DL (0.2-1.0); BLOOD UREA NITROGEN 15 MG/DL (7-18); CALCIUM LEVEL 8.7 MG/DL (8.8-10.2); CARBON DIOXIDE LEVEL 28 MEQ/L (21-32); CHLORIDE LEVEL 101 MEQ/L (98-107); CREATININE FOR GFR 0.47 MG/DL (0.70-1.30); GLOMERULAR FILTRATION RATE > 60.0 (>35); GLUCOSE, FASTING 109 MG/DL (70-100); LIPASE 29 U/L (73-393); POTASSIUM SERUM 3.6 MEQ/L (3.5-5.1); SODIUM LEVEL 136 MEQ/L (136-145); TOTAL PROTEIN 6.3 GM/DL (6.4-8.2)
[2021-05-22] MEDS: PIPERACILLIN/TAZOBACTAM SOD 3.375 GM in D5W MINI-BAG PLUS 50 ML IV SCH (18:51)
[2021-05-22 19:03] LABS: INR 1.46; PROTHROMBIN TIME 18.2 SECONDS (12.7-14.5)
[2021-05-22 19:04] LABS: PARTIAL THROMBOPLASTIN TIME 57.8 SECONDS (25.9-37.0)
[2021-05-22] MEDS ORDERED: LORazepam 2 MG/ML VIAL IV ONE (20:45)
[2021-05-22] MEDS: OMEPRAZOLE 20MG CAP PO SCH (21:00)
[2021-05-22] MEDS ORDERED: COLESEVELAM 625 MG TAB (WELCHOL) PO SCH (21:00)
[2021-05-22] MEDS: TERAZOSIN 5MG CAPSULE PO SCH (21:00)
[2021-05-22] MEDS ORDERED: LORazepam 2 MG/ML VIAL As Ordered ONE (21:22)
[2021-05-22] MEDS ORDERED: FERR325T18 PO (21:32)
[2021-05-22] MEDS ORDERED: AMLO1TAB25 PO (21:32)
[2021-05-22] MEDS ORDERED: BENA1TAB23 PO (21:32)
[2021-05-22] MEDS ORDERED: HOME MED LIST COMPLETE! XX SCH (21:35)
[2021-05-22 22:00] VITALS: BP 156/80
[2021-05-23] MEDS: PIPERACILLIN/TAZOBACTAM SOD 3.375 GM in D5W MINI-BAG PLUS 50 ML IV SCH ×4 (02:30→21:35)
[2021-05-23 06:00] VITALS: BP 155/78
[2021-05-23 08:00] VITALS: BP 154/80
[2021-05-23 08:40] LABS: HEMATOCRIT 35.4 % (42.0-52.0); HEMOGLOBIN 11.9 g/dl (13.5-17.5); LYMPH # 0.7 10^3/uL (1.5-5.0); LYMPH % 11.2 % (24.0-44.0); MEAN CORPUSCULAR HEMOGLOBIN 29.4 pg (27.0-33.0); MEAN CORPUSCULAR HGB CONC 33.6 g/dl (32.0-36.5); MEAN CORPUSCULAR VOLUME 87.4 fl (80.0-96.0); MONO # 0.7 10^3/uL (0.0-0.8); MONO % 11.5 % (2.0-8.0); NEUTROPHILS # 4.6 10^3/uL (1.5-8.5); NEUTROPHILS % 76.6 % (36.0-66.0); PLATELET COUNT, AUTOMATED 288 10^3/uL (150-450); RED BLOOD COUNT 4.05 10^6/uL (4.30-6.10)
[2021-05-23] MEDS: ursodioL 300 MG CAP PO SCH (08:44)
[2021-05-23] MEDS: EZETIMIBE 10MG TABLET (ZETIA) PO SCH (08:45)
[2021-05-23] MEDS ORDERED: ursodioL 300 MG CAP PO SCH ×2 (09:00)
[2021-05-23 09:05] LABS: ALBUMIN 1.8 GM/DL (3.2-5.2); ALT/SGPT 98 U/L (12-78); BILIRUBIN,TOTAL 13.6 MG/DL (0.2-1.0); BLOOD UREA NITROGEN 11 MG/DL (7-18); CALCIUM LEVEL 9.1 MG/DL (8.8-10.2); CARBON DIOXIDE LEVEL 28 MEQ/L (21-32); CHLORIDE LEVEL 103 MEQ/L (98-107); CREATININE FOR GFR 0.49 MG/DL (0.70-1.30); GLOMERULAR FILTRATION RATE > 60.0 (>35); GLUCOSE, FASTING 87 MG/DL (70-100); POTASSIUM SERUM 3.4 MEQ/L (3.5-5.1); SODIUM LEVEL 137 MEQ/L (136-145); TOTAL PROTEIN 6.4 GM/DL (6.4-8.2)
[2021-05-23] MEDS: POTASSIUM CHLORIDE 10MEQ SR TABLET PO SCH (11:24)
[2021-05-23] MEDS: MESALAMINE 400 MG CAPSULE DELAYED RELEASE (DELZICOL) PO SCH ×2 (13:37→21:37)
[2021-05-23 14:00] VITALS: BP 140/70
[2021-05-23] MEDS: RIVAROXABAN 20 MG TAB (XARELTO) PO SCH (18:44)
[2021-05-23] MEDS: OMEPRAZOLE 20MG CAP PO SCH (21:36)
[2021-05-23] MEDS: TERAZOSIN 5MG CAPSULE PO SCH (21:41)
[2021-05-23 22:00] VITALS: BP 148/80
[2021-05-24] MEDS: PIPERACILLIN/TAZOBACTAM SOD 3.375 GM in D5W MINI-BAG PLUS 50 ML IV SCH ×4 (03:40→20:46)
[2021-05-24 06:00] VITALS: BP 155/76
[2021-05-24 06:58] LABS: BASO % 0.2 % (0.0-1.0); HEMATOCRIT 32.4 % (42.0-52.0); LYMPH # 0.7 10^3/uL (1.5-5.0); LYMPH % 11.4 % (24.0-44.0); MEAN CORPUSCULAR HEMOGLOBIN 29.6 pg (27.0-33.0); MEAN CORPUSCULAR VOLUME 87.3 fl (80.0-96.0); MONO # 0.7 10^3/uL (0.0-0.8); MONO % 12.1 % (2.0-8.0); NEUTROPHILS # 4.5 10^3/uL (1.5-8.5); NEUTROPHILS % 75.8 % (36.0-66.0); PLATELET COUNT, AUTOMATED 261 10^3/uL (150-450); RED BLOOD COUNT 3.71 10^6/uL (4.30-6.10); WHITE BLOOD COUNT 5.9 10^3/uL (4.0-10.0)
[2021-05-24 07:29] LABS: ALBUMIN 1.6 GM/DL (3.2-5.2); ALT/SGPT 91 U/L (12-78); BILIRUBIN,DIRECT 11.6 MG/DL (0.0-0.2); BILIRUBIN,TOTAL 13.3 MG/DL (0.2-1.0); BLOOD UREA NITROGEN 9 MG/DL (7-18); CALCIUM LEVEL 8.8 MG/DL (8.8-10.2); CARBON DIOXIDE LEVEL 28 MEQ/L (21-32); CHLORIDE LEVEL 102 MEQ/L (98-107); CREATININE FOR GFR 0.41 MG/DL (0.70-1.30); GLOMERULAR FILTRATION RATE > 60.0 (>35); GLUCOSE, FASTING 82 MG/DL (70-100); POTASSIUM SERUM 3.6 MEQ/L (3.5-5.1); SODIUM LEVEL 136 MEQ/L (136-145); TOTAL PROTEIN 5.1 GM/DL (6.4-8.2)
[2021-05-24 08:18] VITALS: BP 142/82
[2021-05-24] MEDS: ursodioL 300 MG CAP PO SCH (08:37)
[2021-05-24] MEDS: EZETIMIBE 10MG TABLET (ZETIA) PO SCH (08:38)
[2021-05-24] MEDS: POTASSIUM CHLORIDE 10MEQ SR TABLET PO SCH (08:38)
[2021-05-24] MEDS: MESALAMINE 400 MG CAPSULE DELAYED RELEASE (DELZICOL) PO SCH ×2 (08:38→22:33)
[2021-05-24 14:00] VITALS: BP 147/84
[2021-05-24] MEDS: RIVAROXABAN 20 MG TAB (XARELTO) PO SCH (17:00)
[2021-05-24 22:00] VITALS: BP 142/75
[2021-05-24] MEDS: TERAZOSIN 5MG CAPSULE PO SCH (22:33)
[2021-05-24] MEDS: OMEPRAZOLE 20MG CAP PO SCH (22:33)
[2021-05-25] MEDS: PIPERACILLIN/TAZOBACTAM SOD 3.375 GM in D5W MINI-BAG PLUS 50 ML IV SCH ×3 (02:34→16:10)
[2021-05-25 06:00] VITALS: BP 146/73
[2021-05-25 08:05] LABS: BASO % 0.2 % (0.0-1.0); HEMATOCRIT 32.7 % (42.0-52.0); HEMOGLOBIN 11.2 g/dl (13.5-17.5); LYMPH # 0.7 10^3/uL (1.5-5.0); LYMPH % 11.5 % (24.0-44.0); MEAN CORPUSCULAR HEMOGLOBIN 29.9 pg (27.0-33.0); MEAN CORPUSCULAR HGB CONC 34.3 g/dl (32.0-36.5); MEAN CORPUSCULAR VOLUME 87.4 fl (80.0-96.0); MONO # 0.8 10^3/uL (0.0-0.8); MONO % 13.1 % (2.0-8.0); NEUTROPHILS # 4.7 10^3/uL (1.5-8.5); NEUTROPHILS % 74.7 % (36.0-66.0); PLATELET COUNT, AUTOMATED 258 10^3/uL (150-450); RED BLOOD COUNT 3.74 10^6/uL (4.30-6.10); WHITE BLOOD COUNT 6.3 10^3/uL (4.0-10.0)
[2021-05-25 08:29] LABS: ALBUMIN 1.7 GM/DL (3.2-5.2); ALT/SGPT 87 U/L (12-78); BILIRUBIN,TOTAL 14.2 MG/DL (0.2-1.0); BLOOD UREA NITROGEN 9 MG/DL (7-18); CALCIUM LEVEL 8.4 MG/DL (8.8-10.2); CARBON DIOXIDE LEVEL 27 MEQ/L (21-32); CHLORIDE LEVEL 101 MEQ/L (98-107); CREATININE FOR GFR 0.45 MG/DL (0.70-1.30); GLOMERULAR FILTRATION RATE > 60.0 (>35); GLUCOSE, FASTING 81 MG/DL (70-100); POTASSIUM SERUM 3.7 MEQ/L (3.5-5.1); SODIUM LEVEL 135 MEQ/L (136-145); TOTAL PROTEIN 5.1 GM/DL (6.4-8.2)
[2021-05-25] MEDS: ursodioL 300 MG CAP PO SCH (08:53)
[2021-05-25] MEDS: POTASSIUM CHLORIDE 10MEQ SR TABLET PO SCH (08:53)
[2021-05-25] MEDS: MESALAMINE 400 MG CAPSULE DELAYED RELEASE (DELZICOL) PO SCH ×2 (08:53→20:51)
[2021-05-25] MEDS: EZETIMIBE 10MG TABLET (ZETIA) PO SCH (08:55)
[2021-05-25] MEDS ORDERED: LIDOCAINE 1% MDV 20ML VIAL As Ordered ONE (13:51)
[2021-05-25 14:00] VITALS: BP 162/70
[2021-05-25] MEDS ORDERED: SODIUM CHLORIDE 0.9% INJ 10 ML SYR IV PRN (16:15)
[2021-05-25] MEDS: SODIUM CHLORIDE 0.9% INJ 10 ML SYR IV SCH (17:56)
[2021-05-25] MEDS: RIVAROXABAN 20 MG TAB (XARELTO) PO SCH (17:56)
[2021-05-25] MEDS: OMEPRAZOLE 20MG CAP PO SCH (20:50)
[2021-05-25] MEDS: ERTAPENEM SODIUM 1 GM in NS MINI-BAG PLUS 50 ML IV SCH (20:51)
[2021-05-25] MEDS: TERAZOSIN 5MG CAPSULE PO SCH (20:51)
[2021-05-25 22:00] VITALS: BP 134/60
[2021-05-26] MEDS: SODIUM CHLORIDE 0.9% INJ 10 ML SYR IV SCH ×2 (05:06→17:37)
[2021-05-26 06:00] VITALS: BP 136/76
[2021-05-26 06:39] LABS: HEMATOCRIT 32.6 % (42.0-52.0); LYMPH # 0.8 10^3/uL (1.5-5.0); LYMPH % 12.5 % (24.0-44.0); MEAN CORPUSCULAR HEMOGLOBIN 29.4 pg (27.0-33.0); MEAN CORPUSCULAR HGB CONC 33.7 g/dl (32.0-36.5); MEAN CORPUSCULAR VOLUME 87.2 fl (80.0-96.0); MONO # 0.8 10^3/uL (0.0-0.8); MONO % 13.7 % (2.0-8.0); NEUTROPHILS # 4.4 10^3/uL (1.5-8.5); PLATELET COUNT, AUTOMATED 254 10^3/uL (150-450); RED BLOOD COUNT 3.74 10^6/uL (4.30-6.10); WHITE BLOOD COUNT 6.1 10^3/uL (4.0-10.0)
[2021-05-26 07:05] LABS: ALBUMIN 1.7 GM/DL (3.2-5.2); ALT/SGPT 83 U/L (12-78); BILIRUBIN,TOTAL 13.9 MG/DL (0.2-1.0); BLOOD UREA NITROGEN 10 MG/DL (7-18); CALCIUM LEVEL 8.6 MG/DL (8.8-10.2); CARBON DIOXIDE LEVEL 26 MEQ/L (21-32); CHLORIDE LEVEL 103 MEQ/L (98-107); CREATININE FOR GFR 0.39 MG/DL (0.70-1.30); GLOMERULAR FILTRATION RATE > 60.0 (>35); GLUCOSE, FASTING 81 MG/DL (70-100); POTASSIUM SERUM 3.8 MEQ/L (3.5-5.1); SODIUM LEVEL 136 MEQ/L (136-145); TOTAL PROTEIN 5.3 GM/DL (6.4-8.2)
[2021-05-26] MEDS: EZETIMIBE 10MG TABLET (ZETIA) PO SCH (09:10)
[2021-05-26] MEDS: ursodioL 300 MG CAP PO SCH (09:10)
[2021-05-26] MEDS: MESALAMINE 400 MG CAPSULE DELAYED RELEASE (DELZICOL) PO SCH ×2 (09:10→20:37)
[2021-05-26] MEDS: POTASSIUM CHLORIDE 10MEQ SR TABLET PO SCH (09:10)
[2021-05-26 14:00] VITALS: BP 115/62
[2021-05-26] MEDS: RIVAROXABAN 20 MG TAB (XARELTO) PO SCH (17:37)
[2021-05-26] MEDS: ERTAPENEM SODIUM 1 GM in NS MINI-BAG PLUS 50 ML IV SCH (20:36)
[2021-05-26] MEDS: OMEPRAZOLE 20MG CAP PO SCH (20:37)
[2021-05-26] MEDS: TERAZOSIN 5MG CAPSULE PO SCH (20:40)
[2021-05-26 22:00] VITALS: BP 156/82
[2021-05-27 06:00] VITALS: BP 138/77
[2021-05-27 06:25] LABS: BASO % 0.2 % (0.0-1.0); HEMATOCRIT 34.2 % (42.0-52.0); HEMOGLOBIN 11.6 g/dl (13.5-17.5); LYMPH # 0.9 10^3/uL (1.5-5.0); LYMPH % 13.6 % (24.0-44.0); MEAN CORPUSCULAR HEMOGLOBIN 30.1 pg (27.0-33.0); MEAN CORPUSCULAR HGB CONC 33.9 g/dl (32.0-36.5); MEAN CORPUSCULAR VOLUME 88.8 fl (80.0-96.0); MONO # 0.8 10^3/uL (0.0-0.8); MONO % 12.3 % (2.0-8.0); NEUTROPHILS # 4.6 10^3/uL (1.5-8.5); NEUTROPHILS % 73.4 % (36.0-66.0); PLATELET COUNT, AUTOMATED 266 10^3/uL (150-450); RED BLOOD COUNT 3.85 10^6/uL (4.30-6.10); WHITE BLOOD COUNT 6.3 10^3/uL (4.0-10.0)
[2021-05-27] MEDS: SODIUM CHLORIDE 0.9% INJ 10 ML SYR IV SCH ×2 (06:36→17:37)
[2021-05-27 07:05] LABS: ALBUMIN 1.8 GM/DL (3.2-5.2); ALT/SGPT 86 U/L (12-78); BILIRUBIN,TOTAL 13.4 MG/DL (0.2-1.0); BLOOD UREA NITROGEN 11 MG/DL (7-18); CALCIUM LEVEL 8.8 MG/DL (8.8-10.2); CARBON DIOXIDE LEVEL 27 MEQ/L (21-32); CHLORIDE LEVEL 102 MEQ/L (98-107); CREATININE FOR GFR 0.42 MG/DL (0.70-1.30); GLOMERULAR FILTRATION RATE > 60.0 (>35); GLUCOSE, FASTING 77 MG/DL (70-100); POTASSIUM SERUM 3.8 MEQ/L (3.5-5.1); SODIUM LEVEL 135 MEQ/L (136-145); TOTAL PROTEIN 5.4 GM/DL (6.4-8.2)
[2021-05-27] MEDS: ursodioL 300 MG CAP PO SCH (08:34)
[2021-05-27] MEDS: EZETIMIBE 10MG TABLET (ZETIA) PO SCH (08:34)
[2021-05-27] MEDS: MESALAMINE 400 MG CAPSULE DELAYED RELEASE (DELZICOL) PO SCH ×2 (08:34→22:37)
[2021-05-27] MEDS: POTASSIUM CHLORIDE 10MEQ SR TABLET PO SCH (08:34)
[2021-05-27] MEDS: RIVAROXABAN 20 MG TAB (XARELTO) PO SCH (17:36)
[2021-05-27 22:00] VITALS: BP 138/75
[2021-05-27] MEDS: ERTAPENEM SODIUM 1 GM in NS MINI-BAG PLUS 50 ML IV SCH (22:35)
[2021-05-27] MEDS: OMEPRAZOLE 20MG CAP PO SCH (22:35)
[2021-05-27] MEDS: TERAZOSIN 5MG CAPSULE PO SCH (22:36)
[2021-05-28] MEDS: SODIUM CHLORIDE 0.9% INJ 10 ML SYR IV SCH ×2 (05:30→18:00)
[2021-05-28 06:00] VITALS: BP 144/88
[2021-05-28 06:50] LABS: BASO % 0.2 % (0.0-1.0); HEMATOCRIT 33.9 % (42.0-52.0); HEMOGLOBIN 11.4 g/dl (13.5-17.5); LYMPH # 0.8 10^3/uL (1.5-5.0); LYMPH % 13.9 % (24.0-44.0); MEAN CORPUSCULAR HEMOGLOBIN 29.9 pg (27.0-33.0); MEAN CORPUSCULAR HGB CONC 33.6 g/dl (32.0-36.5); MONO # 0.8 10^3/uL (0.0-0.8); NEUTROPHILS # 4.2 10^3/uL (1.5-8.5); NEUTROPHILS % 72.4 % (36.0-66.0); PLATELET COUNT, AUTOMATED 256 10^3/uL (150-450); RED BLOOD COUNT 3.81 10^6/uL (4.30-6.10); WHITE BLOOD COUNT 5.8 10^3/uL (4.0-10.0)
[2021-05-28 07:19] LABS: ALBUMIN 1.8 GM/DL (3.2-5.2); ALT/SGPT 85 U/L (12-78); BILIRUBIN,TOTAL 13.7 MG/DL (0.2-1.0); BLOOD UREA NITROGEN 11 MG/DL (7-18); CALCIUM LEVEL 8.9 MG/DL (8.8-10.2); CARBON DIOXIDE LEVEL 28 MEQ/L (21-32); CHLORIDE LEVEL 101 MEQ/L (98-107); CREATININE FOR GFR 0.43 MG/DL (0.70-1.30); GLOMERULAR FILTRATION RATE > 60.0 (>35); GLUCOSE, FASTING 80 MG/DL (70-100); POTASSIUM SERUM 3.8 MEQ/L (3.5-5.1); SODIUM LEVEL 137 MEQ/L (136-145); TOTAL PROTEIN 5.4 GM/DL (6.4-8.2)
[2021-05-28] MEDS ORDERED: LORazepam 2 MG/ML VIAL IV STA (08:18)
[2021-05-28] MEDS: ursodioL 300 MG CAP PO SCH (09:00)
[2021-05-28] MEDS: POTASSIUM CHLORIDE 10MEQ SR TABLET PO SCH (09:01)
[2021-05-28] MEDS: EZETIMIBE 10MG TABLET (ZETIA) PO SCH (09:01)
[2021-05-28] MEDS: MESALAMINE 400 MG CAPSULE DELAYED RELEASE (DELZICOL) PO SCH (09:01)
[2021-05-28 09:02] VITALS: BP 144/88
[2021-05-28 16:04] VITALS: BP 124/71
[2021-05-28] MEDS ORDERED: AUGM875T28 PO (17:10)
[2021-05-28] MEDS: RIVAROXABAN 20 MG TAB (XARELTO) PO SCH (18:00)
== END 2021-05-28 18:05 | disposition home health service (06) | DRG 445 ==
LOC: M ED 10:47 → M ED INP 18:06 → M MSPAV 18:06
PROVIDERS: ADMIT Internal Medicine Nephrology; ATTEND General Practice
PROC: 02HV33Z Insertion of Infusion Device into Superior Vena Cava, Percutaneous Approach (ICD-10-PCS; principal; 2021-05-25 15:30)
DX: K83.01 Primary sclerosing cholangitis (principal); K51.90 Ulcerative colitis, unspecified, without complications; K56.7 Ileus, unspecified; I10 Essential (primary) hypertension; E78.5 Hyperlipidemia, unspecified; E55.9 Vitamin D deficiency, unspecified; N40.0 Benign prostatic hyperplasia without lower urinary tract symptoms; K21.9 Gastro-esophageal reflux disease without esophagitis; Z90.49 Acquired absence of other specified parts of digestive tract; Z96.641 Presence of right artificial hip joint; Z79.01 Long term (current) use of anticoagulants; Z86.718 Personal history of other venous thrombosis and embolism; Z79.899 Other long term (current) drug therapy; Z88.5 Allergy status to narcotic agent; Z88.8 Allergy status to other drugs, medicaments and biological substances; Z20.822 Contact with and (suspected) exposure to COVID-19; Z95.828 Presence of other vascular implants and grafts

== ENCOUNTER → 2021-07-19 | Outpatient (CLI) | payer MEDICARE, OTHER ==
[~2021-07-19] MED LIST changes: +AUGM875T28 PO; +BENA1TAB23 PO; +FERR325T18 PO
[2021-07-19 13:49] LABS: PLATELET COUNT, AUTOMATED 217 10^3/uL (150-450)
[2021-07-19 14:01] LABS: INR 2.66; PROTHROMBIN TIME 28.7 SECONDS (12.7-14.5)
[2021-07-19 14:03] LABS: PARTIAL THROMBOPLASTIN TIME 79.3 SECONDS (25.9-37.0)
[2021-07-19 15:05] VITALS: BP 104/52
== END ==
LOC: M IRPRO 13:29
DX: R18.8 Other ascites (principal); K83.01 Primary sclerosing cholangitis; R17 Unspecified jaundice